=== PATIENT | male | born 1945 | race Caucasian/White ===

== ENCOUNTER 2021-01-07 15:29 | Emergency (ER) | payer MEDICARE ==
--- NOTE | 2021-01-07 17:12 | Event Note ---
ED Screening Note ED Screening Note: Patient presents for increasingly elevated blood pressure over the last week He states that the last 2 days he has began experiencing dizziness when he first gets up and feels like he has to sit back down. He states he also has a dull aching in his abdomen Patient states he also has a headache which he describes as a pressure Patient states he takes amlodipine and olmesartan for his blood pressure he states he has been on that for a while Patient states he is a current everyday drinker 3-4 beers a day but reports that he stopped drinking a week ago He denies any chest pain, shortness of breath, leg swelling This initial assessment/diagnostic orders/clinical plan/treatment(s) is/are subject to change based on patients health status, clinical progression and re- assessment by fellow clinical providers in the ED. Further treatment and workup at subsequent clinical providers discretion. Patient/guardian urged not to elope from the ED as their condition may be serious if not clinically assessed and managed. Initial orders include: Labs, x-ray, EKG, CT, urine
[2021-01-07 17:30] LABS: Basophils % (Auto) 0.5 % (0.0-1.8); Eosinophils # (Auto) 0.2 K/mm3 (0.0-0.4); Eosinophils % (Auto) 3.1 % (0.0-4.3); Hematocrit 42.9 % (35.5-45.6); Hemoglobin 14.7 gm/dl (11.8-15.2); Lymphocytes # (Auto) 1.3 K/mm3 (1.2-5.4); Mean Corpuscular HGB Conc 34 % (32-34); Mean Corpuscular Volume 94 fl (84-94); Monocytes # (Auto) 0.4 K/mm3 (0.0-0.8); Monocytes % (Auto) 7.4 % (0.0-7.3); Platelet Count 216 K/mm3 (140-440); Red Blood Count 4.59 M/mm3 (3.65-5.03); Red Cell Distribution Width 12.3 % (13.2-15.2)
--- NOTE | 2021-01-07 17:42 | XRay Report ---
CHEST 2 VIEWS 1727 INDICATION / CLINICAL INFORMATION: dizziness, HTN urgency COMPARISON: None available. FINDINGS: SUPPORT DEVICES: None. HEART / MEDIASTINUM: No significant abnormality. LUNGS / PLEURA: No acute infiltrates are seen. No pleural effusions are noted. Tiny calcified granulo ma is seen in the left. No pneumothorax. ADDITIONAL FINDINGS: Old left rib fractures are noted. IMPRESSION: No significant acute abnormality Signer Name: Zachery Corona MD Signed: 01/07/2021 5:38 PM Workstation Name: [id number]
--- NOTE | 2021-01-07 18:24 | Cat Scan Report ---
CT HEAD WITHOUT CONTRAST INDICATION / CLINICAL INFORMATION: dizziness, HTN urgency, RIOS. TECHNIQUE: All CT scans at this location are performed using CT dose reduction for ALARA by means of automated e xposure control. COMPARISON: No prior available. FINDINGS: HEMORRHAGE: None. EXTRA-AXIAL SPACES: Normal in size and morphology for the patient's age. VENTRICULAR SYSTEM: Normal in size and morphology for the patient's age. CEREBRAL PARENCHYMA: Mild chronic microvascular changes in the periventricular subcortical white robyn er. No acute territorial infarct. MIDLINE SHIFT OR HERNIATION: None. CEREBELLUM / BRAINSTEM: No significant abnormality. ORBITS: Normal as visualized. SOFT TISSUES of HEAD: No significant abnormality. CALVARIUM: No significant abnormality. PARANASAL SINUSES / MASTOID AIR CELLS: Normal as visualized. ADDITIONAL FINDINGS: Vertebrobasilar calcifications noted. IMPRESSION: 1. No acute intracranial abnormality. 2. Chronic microvascular changes are noted in the periventricular and subcortical white matter. Signer Name: Fredi Burris MD Signed: 01/07/2021 6:19 PM Workstation Name: [id number]
[2021-01-07 18:39] LABS: Albumin 4.3 g/dL (3.9-5); Calcium 9.8 mg/dL (8.4-10.2)
[2021-01-07 18:47] LABS: Bilirubin,Urine NEG (Negative); Blood,Urine NEG (Negative); Color,Urine Yellow (Yellow); Urobilinogen,Urine < 2.0 mg/dL (<2.0)
--- NOTE | 2021-01-07 23:21 | Emergency Department Report ---
ED General Adult HPI - General Chief complaint: High BP Stated complaint: HYPERTENSION Time Seen by Provider: 01/07/21 17:11 Source: patient Mode of arrival: Ambulatory Limitations: No Limitations - History of Present Illness Initial comments: 75-year-old male, history of hypertension, chronic kidney disease, presents to ED with elevated blood pressure. Patient states he had an appointment with his PCP 1 week ago and was told that his blood pressure was elevated. States it was 190s/100s at that time. Patient states that he takes amlodipine 5/olmesartan 40 mg daily. Patient states this medication was not adjusted during his visit. He was told by his PCP to keep a log of his blood pressure readings. Patient states following his PCP visit, he began having headache and dizziness. States his dizziness is worse when he moves his head too quickly, or if he changes position. He denies any nausea or vomiting, chest pain, shortness of breath. Patient has been checking his blood pressure at home and it has remained elevated. Patient states his follow-up appointment with his PCP is in March. -: week(s) (1) Location: head Quality: aching Consistency: intermittent Worsens with: movement Associated Symptoms: headaches. denies: chest pain, cough, fever/chills, nausea/vomiting, shortness of breath, weakness - Related Data Previous Rx's Medication Instructions Recorded Last Taken Type Amlodipine Bes/Olmesartan Med 1 each PO QDAY #30 tablet 01/07/21 Unknown Rx [Amlodipine-Olmesartan 10-40 mg] Meclizine [Antivert] 25 mg PO TID PRN #20 tablet 01/07/21 Unknown Rx Allergies Allergy/AdvReac Type Severity Reaction Status Date / Time No Known Allergies Allergy Unverified 01/07/21 16:34 ED Review of Systems ROS: Stated complaint: HYPERTENSION Other details as noted in HPI Comment: All other systems reviewed and negative Constitutional: denies: fever Respiratory: denies: shortness of breath Cardiovascular: denies: chest pain Gastrointestinal: denies: nausea, vomiting Neurological: headache, vertigo. denies: weakness, numbness ED Past Medical Hx - Past Medical History Previous Medical History?: Yes Hx Hypertension: Yes - Surgical History Past Surgical History?: Yes Additional Surgical History: neck fusion 40 years ago. left knee surgery - Medications Home Medications: Home Medications Medication Instructions Recorded Confirmed Last Taken Type Amlodipine Bes/Olmesartan Med 1 each PO QDAY #30 tablet 01/07/21 Unknown Rx [Amlodipine-Olmesartan 10-40 mg] Meclizine [Antivert] 25 mg PO TID PRN #20 tablet 01/07/21 Unknown Rx ED Physical Exam - General Limitations: No Limitations General appearance: alert, in no apparent distress - Head Head exam: Present: atraumatic, normocephalic - Eye Eye exam: Present: normal appearance, PERRL, EOMI - ENT ENT exam: Present: mucous membranes moist - Neck Neck exam: Present: normal inspection - Respiratory Respiratory exam: Present: normal lung sounds bilaterally. Absent: respiratory distress - Cardiovascular Cardiovascular Exam: Present: regular rate, normal rhythm - GI/Abdominal GI/Abdominal exam: Present: soft. 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 Absent: motor sensory deficit - Psychiatric Psychiatric exam: Present: normal affect, normal mood - Skin Skin exam: Present: warm, dry, intact, normal color ED Course Vital Signs 01/07/21 01/07/21 01/07/21 16:34 21:48 23:38 Temperature 98.2 F Pulse Rate 66 74 70 Respiratory 14 18 Rate Blood Pressure 186/102 Blood Pressure 188/97 172/97 [Right] O2 Sat by Pulse 98 98 Oximetry ED Medical Decision Making - Lab Data Result diagrams: 01/07/21 17:18 01/07/21 17:18 - EKG Data -: EKG Interpreted by Ma EKG shows normal: sinus rhythm, axis, intervals, QRS complexes Rate: normal - EKG Data Interpretation: no acute changes, other (T wave inversion aVL) - Radiology Data Radiology results: report reviewed, image reviewed - Medical Decision Making 75-year-old male, history of hypertension, compliant with medications, presents to ED with elevated blood pressure x1 week. Patient reports mild headache and some vertigo-like dizziness. Gait is normal. No neuro deficits on exam. CT head is unremarkable. Blood pressure did improve somewhat while in the ED without intervention. Labs are unremarkable, except for some renal insufficiency that patient reports his doctor has told him about. Will increase patient's current BP medication dose. Patient advised to follow-up with his PCP. - Differential Diagnosis Hypertension, stroke, hypertensive dizziness Critical care attestation.: If time is entered above; I have spent that time in minutes in the direct care of this critically ill patient, excluding procedure time. ED Disposition Clinical Impression: Uncontrolled hypertension, Dizziness Disposition: DC- TO HOME OR SELFCARE Is pt being admited?: No Condition: Stable Instructions: Benign Positional Vertigo, Dizziness, [id number], Managing Your Hypertension, Hypertension (ED) Prescriptions: Amlodipine Bes/Olmesartan Med [Amlodipine-Olmesartan 10-40 mg] 1 each PO QDAY #30 tablet Meclizine [Antivert] 25 mg PO TID PRN #20 tablet PRN Reason: Vertigo Referrals: PRIMARY CARE, [Primary Care Provider] - 3-5 Days Time of Disposition: 23:47
[2021-01-07 23:38] VITALS: BP 172/97
--- NOTE | 2021-01-09 19:12 | Electrocardiograph Report ---
[facility] Test Date: 2021-01-07 Test Time: 17:31:46 Pat Name: MARCIAL DAMICO Department: Room: Gender: M Site Safety Manager: LIEN : 1945 Requested By: PETAR ARORA Order Number: [id number] Reading MD: Gely Rock Measurements Intervals [place] Rate: 59 P: 47 TN: 156 QRS: 45 QRSD: 76 T: 70 QT: 405 QTc: 400 Interpretive Statements Sinus bradycardia No previous ECG available for comparison Electronically Signed On 01-09-2021 19:12:09 EDT by Gely Rock
== END 2021-01-08 | disposition home or self-care (01) ==
LOC: ED 15:29
DX: I10 Essential (primary) hypertension (principal); R42 Dizziness and giddiness; Z98.890 Other specified postprocedural states; Z79.899 Other long term (current) drug therapy
CPT/HCPCS: 36415; 70450; 71046; 80053; 81001; 82550; 83735; 84484; 85025; 93005